=== PATIENT | male | born 1980 | race Caucasian/White ===

== ENCOUNTER 2017-01-26 22:43 | Emergency (ER) | payer SELFPAY ==
[2017-01-27 00:02] LABS: PLATELET COUNT 170 x10^3mcL (130-400); RED CELL DISTRIBUTION WIDTH 12.8 % (11.5-14.5)
[2017-01-27 00:08] LABS: CALCIUM 8.5 mg/dL (8.5-10.1); CHLORIDE SERUM 99 mmol/L (98-107); GFR1 > 60 mL/min; GLUCOSE SERUM 95 mg/dL (74-106); POTASSIUM SERUM 3.5 mmol/L (3.5-5.1); SODIUM SERUM 136 mmol/L (136-145)
[2017-01-27 00:10] LABS: BASOPHIL % 0 % (0-2)
[2017-01-27 00:14] LABS: ALBUMIN 3.8 g/dL (3.4-5.0); AST/SGOT 117 U/L (15-37); BILIRUBIN TOTAL 1.9 mg/dL (0.20-1.00); TOTAL PROTEIN, SERUM 6.9 g/dL (6.4-8.2)
[2017-01-27 00:15] LABS: ALKALINE PHOSPHATASE 70 U/L (46-116); ALT/SGPT 53 U/L (16-63)
[2017-01-27 00:32] LABS: CK-MB 10.8 ng/mL (0-3.6)
[2017-01-27 08:02] LABS: CALCIUM 7.6 mg/dL (8.5-10.1); CARBON DIOXIDE 24.3 mmol/L (21-32); CHLORIDE SERUM 105 mmol/L (98-107); CREATININE SERUM 0.9 mg/dL (0.7-1.3); GFR1 > 60 mL/min; GLUCOSE SERUM 101 mg/dL (74-106); POTASSIUM SERUM 3.4 mmol/L (3.5-5.1); SODIUM SERUM 139 mmol/L (136-145)
[2017-01-27 10:10] VITALS: BP 118/78
== END 2017-01-27 10:10 | disposition home or self-care (01) ==
LOC: ED 22:43
PROVIDERS: Emergency Medicine
DX: T43.621A Poisoning by amphetamines, accidental (unintentional), initial encounter (principal); M62.82 Rhabdomyolysis; Y92.89 Other specified places as the place of occurrence of the external cause
CPT/HCPCS: 80307; J1630; J3490; J7030; Q0092

== ENCOUNTER 2017-01-29 17:51 | Emergency (ER) | payer OTHER ==
[2017-01-29 19:13] VITALS: BP 144/85
== END 2017-01-29 19:14 | disposition other institution (70) ==
LOC: ED 17:51
DX: Z02.89 Encounter for other administrative examinations (principal); F15.10 Other stimulant abuse, uncomplicated

== ENCOUNTER 2019-06-08 09:21 | Emergency (ER) | payer OTHER | END 2019-06-08 11:10 | disposition other institution (70) | LOC: ED 09:21 | DX: Z02.89 Encounter for other administrative examinations (principal) ==

== ENCOUNTER 2019-06-08 09:21 | Emergency (ER) | payer OTHER ==
[~2019-06-08] VITALS: Ht 182.9 cm; Wt 90.7 kg
[2019-06-08 09:22] VITALS: Ht 182.9 cm; Wt 90.7 kg
[2019-06-08 09:59] LABS: BASOPHIL % 0.1 % (0-2); PLATELET COUNT 251 x10^3mcL (130-400); RED CELL DISTRIBUTION WIDTH 13.1 % (11.5-14.5)
[2019-06-08 10:53] LABS: ALKALINE PHOSPHATASE 75 U/L (46-116); ALT/SGPT 41 U/L (16-63); AST/SGOT 27 U/L (15-37); BILIRUBIN TOTAL 0.5 mg/dL (0.20-1.00); CALCIUM 8.8 mg/dL (8.5-10.1); CARBON DIOXIDE 28.1 mmol/L (21-32); CHLORIDE SERUM 99 mmol/L (98-107); CREATININE SERUM 0.9 mg/dL (0.7-1.3); GFR1 > 60 mL/min; GLUCOSE SERUM 114 mg/dL (74-106); POTASSIUM SERUM 3.6 mmol/L (3.5-5.1); SODIUM SERUM 136 mmol/L (136-145); TOTAL PROTEIN, SERUM 7.2 g/dL (6.4-8.2)
[2019-06-08 11:10] VITALS: BP 140/77
== END 2019-06-08 11:10 | disposition other institution (70) ==
LOC: ED 09:21
PROVIDERS: Emergency Medicine
DX: L03.115 Cellulitis of right lower limb (principal); L03.116 Cellulitis of left lower limb; L03.221 Cellulitis of neck; L03.811 Cellulitis of head [any part, except face]; L03.114 Cellulitis of left upper limb; L03.113 Cellulitis of right upper limb
CPT/HCPCS: J0696; J7030; J7060; Q0092